=== PATIENT | male | born 1995 | race African-American/Black ===

== ENCOUNTER 2023-11-22 19:03 | Emergency (ER) | payer MEDICAID ==
[~2023-11-22] VITALS: Ht 188 cm; Wt 100.0 kg
[2023-11-22 19:07] VITALS: BP 127/87; PULSE 93; RESP 17; TEMP 98.5; O2SAT 99
== END 2023-11-22 20:46 | disposition home or self-care (01) ==
LOC: ER 19:04
DX: F11.10 Opioid abuse, uncomplicated (principal); J45.909 Unspecified asthma, uncomplicated; Z72.89 Other problems related to lifestyle
CPT/HCPCS: 99281

== ENCOUNTER 2024-02-21 14:24 | Emergency (ER) | payer MEDICAID ==
[~2024-02-21] VITALS: Ht 188 cm; Wt 90.1 kg
[2024-02-21 14:34] VITALS: BP 127/83; PULSE 80; RESP 18; TEMP 98.2; O2SAT 99
== END 2024-02-21 15:42 | disposition left against medical advice (07) ==
LOC: ER 14:24
DX: R05.9 Cough, unspecified (principal); R09.81 Nasal congestion; J45.909 Unspecified asthma, uncomplicated; Z88.0 Allergy status to penicillin
CPT/HCPCS: 99281

== ENCOUNTER 2024-04-16 16:19 | Emergency (ER) | payer MEDICAID ==
[~2024-04-16] VITALS: Ht 175.3 cm; Wt 84.1 kg
[2024-04-16 16:20] VITALS: BP 142/90; PULSE 101; RESP 18; TEMP 97.4; O2SAT 98
[2024-04-16] MEDS ORDERED: BUPR1FIL3 SL (17:40)
[2024-04-16] MEDS: buprenorphine/naloxone 8MG-2MG SUBlingual film SL STA (17:43)
== END 2024-04-16 17:59 | disposition home or self-care (01) ==
LOC: ER 16:19
DX: F11.99 Opioid use, unspecified with unspecified opioid-induced disorder (principal); J45.909 Unspecified asthma, uncomplicated; Z88.0 Allergy status to penicillin; Z79.899 Other long term (current) drug therapy
CPT/HCPCS: 99283

== ENCOUNTER 2024-11-09 20:08 | Emergency (ER) | payer MEDICAID ==
[~2024-11-09] VITALS: Ht 188 cm; Wt 97.7 kg
[2024-11-09 20:13] VITALS: BP 134/78; PULSE 77; RESP 18; TEMP 98.4; O2SAT 98
--- NOTE | 2024-11-09 20:23 | ELECTROCARDIOGRAPH REPORT ---
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
--- NOTE | 2024-11-09 20:37 | Physician Documentation ---
History of Present Illness ~ General Chief Complaint: See Chief Complaint Stated Complaint: REQUESTING EKG Time Seen by MD: 20:28 Primary Medical Doctor: Unknown name History of Present Illness Initial Comments Patient is seen today with complaints of needing medically cleared to increase his dose of methadone above 150 mg per day. Patient currently denies any chest pain or shortness of breath or abdominal pain or nausea, vomiting, diarrhea. Patient has no new or other concern or complaint at this time. Patient denies any fevers or chills or recent illness. Medication Reconciliation Allergies: Coded Allergies: Penicillins (Verified Allergy, Unknown, 11/09/24) Past Medical History Past Medical History: Asthma Past Surgical History: no surgical history Alcohol Use: Occasionally Drug Use: none Review of Systems Constitutional: Denies: chills, fever, weakness Eyes: Denies: pain, blurred vision ENT: Denies: ear pain, nose pain, throat pain, mouth pain Respiratory: Denies: cough, shortness of breath Cardiovascular: Denies: chest pain, palpitations Gastrointestinal: Denies: abdominal pain, nausea, vomiting Genitourinary: Denies: burning, dysuria Male Genitalia: Denies: penile discharge, testicular pain Neurological: Denies: headache, dizziness Musculoskeletal: Denies: pain, swelling Integumentary: Denies: rash, lesions Allergic/Immunologic: Denies: hives, itching Hematologic/Lymphatic: Denies: no symptoms reported Psychiatric: Denies: depression, anxiety Physical Exam Physical Exam Vital Signs: Temperature: 98.4, Source: Oral, Heart Rate: 77, Respiratory Rate: 18, BP: 134/78, Pulse Oximetry: 98, Weight: 97.730 Physical Exam General: Awake and Alert, no acute distress. HEENT: Conjunctiva pink, Sclera clear, Mucus Membranes moist. Neck: Supple without masses and tenderness. Resp: Unlabored. Lungs clear to auscultation bilaterally. Heart: Regular Rate and rhythm, normal S1 and S2 without murmur, rub or gallop. Abdomen: Soft and non tender no organomegaly Extremities: No cyanosis,clubbing or edema. Skin: Warm and Dry. Progress Results/Orders Results/Orders Completed Orders - AVE DRUMMOND PAC Electrocardiogram (11/09/24 ) Vital Signs 11/09/24 20:13 Temp 98.4 Pulse 77 Resp 18 B/P (MAP) 134/78 Pulse Ox 98 EKG/XRAY/CT/US/VASC/MRI EKG : Additional Comment EKG interpreted by myself today shows regular rate at 99 beats per minute, normal sinus rhythm, no axis deviation and no ST segment elevation. Medical Decision Making Findings Patient is seen today with complaints of needing medically cleared to increase his dose of methadone above 150 mg per day. Patient currently denies any chest pain or shortness of breath or abdominal pain or nausea, vomiting, diarrhea. Patient has no new or other concern or complaint at this time. Patient denies any fevers or chills or recent illness. Patient is medically cleared via history and physical exam findings as well as EKG to increase his dose of methadone as needed above his current dose. Patient will return to ED with any worsening, concerning or changing symptoms. Departure Disposition: 01 HOME / SELF CARE / HOMELESS Impression: Primary Impression: General medical exam Condition: Stable Additional Instructions: Patient is medically cleared via history and physical exam findings as well as EKG to increase his dose of methadone as needed above his current dose. Patient will return to ED with any worsening, concerning or changing symptoms. Referrals: NO PRIMARY CARE PROVIDER (PCP) Signature Scribe Signature: No scribe Attestation: No scribe AVE DRUMMOND Nov 09, 2024 20:37
== END 2024-11-09 21:00 | disposition home or self-care (01) ==
LOC: ER 20:08
DX: Z00.00 Encounter for general adult medical examination without abnormal findings (principal); J45.909 Unspecified asthma, uncomplicated; I49.8 Other specified cardiac arrhythmias; Z88.0 Allergy status to penicillin; Z72.89 Other problems related to lifestyle
CPT/HCPCS: 93005; 99283

== ENCOUNTER 2024-11-10 02:51 | Emergency (ER) | payer MEDICAID ==
[~2024-11-10] VITALS: Ht 188 cm; Wt 97.7 kg
[2024-11-10 02:57] VITALS: BP 145/88; PULSE 97; RESP 18; TEMP 98.7; O2SAT 99
== END 2024-11-10 05:30 | disposition left against medical advice (07) ==
LOC: ER 02:51
DX: R10.9 Unspecified abdominal pain (principal); R11.2 Nausea with vomiting, unspecified; Z53.21 Procedure and treatment not carried out due to patient leaving prior to being seen by health care provider; Z88.0 Allergy status to penicillin

== ENCOUNTER 2024-11-11 20:25 | Emergency (ER) | payer MEDICAID ==
[~2024-11-11] VITALS: Ht 188 cm; Wt 78.5 kg
--- NOTE | 2024-11-11 20:39 | Physician Documentation ---
History of Present Illness ~ Chief Complaint: Constipation Stated Complaint: ABD PAIN Time Seen by MD: 21:01 Primary Medical Doctor: ABDON HPI Patient presents with three days of constipation not having bowel movements. Patient acknowledges being a methadone patient. He adds that he has taken multiple laxatives to try to have a bowel movement. Medication Reconciliation Allergies: Coded Allergies: Penicillins (Verified Allergy, Unknown, 11/11/24) >5 years, unknown reaction, unknown treatment, PEN-FAST unknown Past Medical History Past Medical History: Asthma Past Surgical History: no surgical history Alcohol Use: Occasionally Drug Use: none Physical Exam Vital Signs: Temperature: 96.8, Source: Temporal, Heart Rate: 100, Respiratory Rate: 15, BP: 112/74, Pulse Oximetry: 97, Weight: 78.500 Progress Results/Orders Results/Orders Completed Orders - DELONTE MACIEL SAUSAGE MAKER Methylnaltrexone Br Inj (Relistor Inj (11/11/24 21:05) Medications Received in ER Medications (Trade) Dose Ordered Sig/Elier Route PRN Reason Start Time Stop Time Status Last Admin Dose Admin (Relistor inj SubQ only) 12 mg ONCE ONCE SQ 11/11/24 21:05 11/11/24 21:06 DC 11/11/24 21:08 12 MG Vital Signs 11/11/24 20:37 Temp 96.8 Pulse 100 Resp 15 B/P (MAP) 112/74 Pulse Ox 97 Medical Decision Making Findings Patient attempted to use multiple laxatives without much benefit. He did advise me that he has a methadone patient. Therefore I gave him a shot of Relistor. Advised him to return to the ED if he is unable to have a bowel movement Diff Dx GI Bleed:Consideration: Include: AE fistula, Angiodysplasia, Bleeding diathesis, Blood loss anemia, Carcinoma, Diverticulosis, Diverticulitis, Esophageal varicies, Esophagitis, Gastritis, Gastroenteritis, Inflammatory BD, Anette-Gonzalez syndrome, Meckel's diverticulum, PUD, Other Diff Dx N/V/D:Considerations: Include: Appendicitis, Bowel obstruction, Dehydration, DKA, Diarrhea - bacterial, Diarrhea - parasitic, Diarrhea - viral, Diverticulitis, Diverticulosis, Drug toxicity, Electrolyte imbalance, Food poisoning, Gastroenteritis, GE reflux, GI bleed, Hepatitis, Hernia, Hypovolemia, Hypotension, Inflammatory BD, Impaction, Malnutrition, Pancreatitis, PUD, Renal failure, Urinary obstruction, UTI, Urolithiasis, Other Departure Disposition: 01 HOME / SELF CARE / HOMELESS Impression: Primary Impression: Constipation Additional Impression: Methadone dependence Referrals: NO PRIMARY CARE PROVIDER (PCP) Signature Scribe Signature: t Attestation: Scribed for Delonte Maciel Stitching Machine Operator by Delonte Ratliff NP . 11/11/24 21:12 DELONTE MACIEL SAUSAGE MAKER Nov 11, 2024 20:39
[2024-11-11] MEDS: methylnaltrexone br 12mg/0.6ml inj***SubQ only SQ ONE (21:08)
[2024-11-11 21:17] VITALS: BP 138/80; PULSE 69; RESP 18; TEMP 98.6; O2SAT 99
== END 2024-11-11 21:18 | disposition home or self-care (01) ==
LOC: ER 20:26
DX: K59.00 Constipation, unspecified (principal); J45.909 Unspecified asthma, uncomplicated; F11.20 Opioid dependence, uncomplicated; Z88.0 Allergy status to penicillin
CPT/HCPCS: 96372; 99283; J2212

== ENCOUNTER 2025-03-24 03:35 | Emergency (ER) | payer SELFPAY ==
[~2025-03-24] VITALS: Ht 188 cm; Wt 100.0 kg
[2025-03-24 03:38] VITALS: BP 125/77; PULSE 116; RESP 16; TEMP 98.2; O2SAT 95
== END 2025-03-24 05:42 | disposition left against medical advice (07) ==
LOC: ER 03:37
DX: R11.0 Nausea (principal); Z88.0 Allergy status to penicillin; Z53.21 Procedure and treatment not carried out due to patient leaving prior to being seen by health care provider
CPT/HCPCS: 99281